=== PATIENT | female | born 1950 | race Caucasian/White ===

== ENCOUNTER → 2018-08-29 | Outpatient (CLI) | payer MEDICARE ==
--- NOTE | 2018-08-29 15:06 | XR ---
EXAMINATION TYPE: XR foot complete RT DATE OF EXAM: 08/29/2018 COMPARISON: None HISTORY: M [id number] TECHNIQUE: Three-view right foot FINDINGS: There is advanced degenerative change at the first metatarsophalangeal joint space. Some mi ld hallux valgus deformity is present. No acute fractures are evident. Alignment is otherwise normal. Small Achilles tendon calcaneal heel s pur is present. Follow-up exams can be performed 7-10 days from acute trauma for continued pain. IMPRESSION: 1. 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
--- NOTE | 2018-08-29 15:08 | XR ---
EXAMINATION TYPE: XR ankle complete RT DATE OF EXAM: 08/29/2018 COMPARISON: None HISTORY: M 25.571 TECHNIQUE: Three-view right ankle FINDINGS: Ankle mortise is intact. Some mild proximal foot soft tissue swelling may be present inferi or to the medial lateral malleolus. No acute fractures are evident. Achilles tendon calcaneal heel spur is present. IMPRESSION: 1. There may be some mild soft tissue prominence over the distal ankle. 2. No acute osseous abnormality evident.
== END | disposition home or self-care (01) ==
LOC: RADXRMAIN 14:25
PROVIDERS: ATTEND Physician Assistant
DX: M19.071 Primary osteoarthritis, right ankle and foot (principal)

== ENCOUNTER → 2018-09-10 | Outpatient (CLI) | payer MEDICARE ==
[2018-09-11 16:11] LABS: Imipramine + Desipramine 343 ng/mL (150-300)
== END | disposition home or self-care (01) ==
LOC: LABWHC1 13:11
PROVIDERS: ATTEND Psychiatry & Neurology Psychiatry
DX: F33.41 Major depressive disorder, recurrent, in partial remission (principal)
CPT/HCPCS: 36415; G0480; 80335

== ENCOUNTER → 2018-12-15 | Outpatient (CLI) | payer MEDICARE ==
--- NOTE | 2018-12-16 10:24 | MM ---
Reason for exam: screening (asymptomatic). Last mammogram was performed 5 years and 1 month ago. Physical Findings: A clinical breast exam by your physician is recommended on an annual basis and results should be correlated with mammographic findings. MG 3D Screening Mammo W/Cad Bilateral CC and MLO view(s) were taken. Prior study comparison: November 16, 2013, mammogram, performed at [facility]. October 26, 2013, mammogram, performed at [facility]. January 01, 2002, bilateral screening mammogram. The breast tissue is heterogeneously dense. This may lower the sensitivity of mammography. No suspicious abnormality. Right intramammary lymph nodes. ASSESSMENT: Benign, BI-RAD 2 RECOMMENDATION: Routine screening mammogram of both breasts in 1 year.
== END | disposition home or self-care (01) ==
LOC: RADMAMWWP 13:53
PROVIDERS: ATTEND Family Medicine
DX: Z12.31 Encounter for screening mammogram for malignant neoplasm of breast (principal)
CPT/HCPCS: 77063; 77067

== ENCOUNTER → 2020-10-06 | Outpatient (CLI) | payer MEDICARE ==
--- NOTE | 2020-10-07 14:57 | MM ---
Reason for exam: screening (asymptomatic). Last mammogram was performed 1 year and 10 months ago. History: Patient is postmenopausal. Took hormonal contraceptives for 7 months. Physical Findings: A clinical breast exam by your physician is recommended on an annual basis and results should be correlated with mammographic findings. MG Screening Mammo w CAD Bilateral CC and MLO view(s) were taken. Prior study comparison: December 15, 2018, bilateral MG 3d screening mammo w/cad. November 16, 2013, mammogram, performed at [facility]. There are scattered fibroglandular densities. ASSESSMENT: Benign, BI-RAD 2 RECOMMENDATION: Routine screening mammogram of both breasts in 1 year.
== END | disposition home or self-care (01) ==
LOC: RADMAMWWP 13:50
PROVIDERS: ATTEND Family Medicine
DX: Z12.31 Encounter for screening mammogram for malignant neoplasm of breast (principal); Z78.0 Asymptomatic menopausal state
CPT/HCPCS: 77067

== ENCOUNTER → 2022-10-16 | Outpatient (CLI) | payer MEDICARE ==
--- NOTE | 2022-10-17 18:56 | MM ---
Reason for Exam: Screening (asymptomatic). Last mammogram was performed 2 year(s) and 0 month(s) ago. Patient History: Menarche at age 14. First Full-Term at age 29. Hysterectomy at age 49. Postmenopausal. Hormonal Contraceptives for 7 months. Risk Values: Marie 5 year model risk: 1.9%. NCI Lifetime model risk: 5.6%. Prior Study Comparison: 11/16/2013 Screening Mammogram, [facility]. 12/15/2018 Bilateral Screening Mammogram, [facility]. 10/06/2020 Bilateral Screening Mammogram, [facility]. Tissue Density: There are scattered fibroglandular densities. Findings: Analyzed By CAD. Pattern appears symmetrical and stable. No significant interval change. No suspicious groups of microcalcifications, spiculated or lobular masses, architectural distortion or other secondary signs of malignancy are mammographically apparent. Overall Assessment: Benign, BI-RAD 2 Management: Screening Mammogram of both breasts in 1 year. A negative mammogram report should not preclude additional follow up of suspicious palpable abnormalities. Patient should continue monthly self breast exam. A clinical breast exam by your physician is recommended on an annual basis and results should be correlated with mammographic findings. Electronically signed and approved by: Champ Ruffin D.O. Radiologis
== END | disposition home or self-care (01) ==
LOC: RADMAMWWP 15:33
PROVIDERS: ATTEND Family Medicine
DX: Z12.31 Encounter for screening mammogram for malignant neoplasm of breast (principal); Z78.0 Asymptomatic menopausal state
CPT/HCPCS: 77067

== ENCOUNTER → 2023-06-21 | Outpatient (CLI) | payer MEDICARE ==
[2023-06-21] MEDS: DENOSUMAB 60 MG/ML 1 ML SYRINGE SQ NR (12:53)
[2023-06-21 13:02] VITALS: BP 124/74; PULSE 80; RESP 14; TEMP 97
== END ==
LOC: PROCWHC3 12:37
PROVIDERS: ATTEND Family Medicine
DX: M81.0 Age-related osteoporosis without current pathological fracture (principal)
CPT/HCPCS: 96372; J0897

== ENCOUNTER 2024-08-11 11:51 | Outpatient (CLI) | payer MEDICARE ==
[~2024-08-11 11:51] MED LIST: DENOSUMAB 60 MG/ML 1 ML SYRINGE SQ NR
[2024-08-11 12:15] VITALS: BP 125/76; PULSE 91; RESP 16; TEMP 97.5
[2024-08-11] MEDS: DENOSUMAB 60 MG/ML 1 ML SYRINGE SQ ONE (12:15)
== END 2024-08-12 10:53 | disposition home or self-care (01) ==
LOC: PROCWHC3 11:51
PROVIDERS: ATTEND Family Medicine
DX: M81.0 Age-related osteoporosis without current pathological fracture (principal)
CPT/HCPCS: 96372; J0897